=== PATIENT | female | born 1940 | race Caucasian/White ===

== ENCOUNTER 2017-03-07 12:57 | Outpatient (CLI) | payer OTHER ==
--- NOTE | 2017-03-07 14:37 | CT Report ---
CT ABDOMEN AND PELVIS WITHOUT CONTRAST: 03/07/2017 CLINICAL INDICATION: Flank pain. TECHNIQUE: Axial CT images of the abdomen and pelvis were obtained without oral or intravenous contr ast, according to renal stone protocol. No previous CT is available for comparison. In accordance with CT protocol optimization, one or more of the following dose reduction techniques w ere utilized for this exam: automated exposure control, adjustment of mA and/or KV based on patient size, or use of iterative reconstructive technique. FINDINGS: Limited evaluation of the lung bases is unremarkable. Abdomen: There is a left renal cyst present. No hydronephrosis or nephrolithiasis is present. Allo wing for the lack of intravenous contrast enhancement, the liver, spleen, pancreas, and adrenal gland s are unremarkable. The patient is status post cholecystectomy. No bowel dilatation, free gas, or f ree fluid is present. No abdominal adenopathy is seen. Pelvis: The distal ureters and urinary bladder appear unremarkable. Sigmoid diverticulosis is prese nt, without CT evidence of diverticulitis. There is a 3-cm left adnexal cyst, likely ovarian in orig in. Consider pelvic ultrasound for further evaluation. No pelvic adenopathy or free fluid is presen t. Osseous structures demonstrate degenerative changes. IMPRESSION: 1. NO EVIDENCE OF LEFT NEPHROLITHIASIS OR HYDRONEPHROSIS. 2. LEFT ADNEXAL CYST, MEASURING 3 CM. CONSIDER PELVIC ULTRASOUND FOR FURTHER EVALUATION. 3. DIVERTICULOSIS, WITHOUT CT EVIDENCE OF DIVERTICULITIS. JOB #: [id number] EXT JOB #:[id number]
== END 2017-03-07 12:58 | disposition home or self-care (01) ==
LOC: DI 12:57
PROVIDERS: ATTEND Internal Medicine
DX: N94.89 Other specified conditions associated with female genital organs and menstrual cycle (principal); K57.30 Diverticulosis of large intestine without perforation or abscess without bleeding
CPT/HCPCS: 74176

== ENCOUNTER 2017-03-26 07:28 | Outpatient (CLI) | payer OTHER ==
--- NOTE | 2017-03-26 10:43 | Ultrasound Report ---
PELVIC ULTRASOUND: 03/26/2017 CLINICAL INDICATION: Left ovarian cyst on CT. TECHNIQUE: Transabdominal pelvic ultrasound performed for global evaluation. Real-time scanning perfo rmed and static images obtained. The patient declined transvaginal imaging. COMPARISON: CT of 03/07/2017. FINDINGS: The uterus is anteverted, measuring 8.6 x 4.3 x 2.5 cm. The endometrium is thickened for a postmenopausal patient, measuring 8 mm, and trace fluid is noted in the endometrial canal. No focal m yometrial lesion is present. The right ovary was not confidently identified on transabdominal imaging . The left ovary measures 3.6 x 2.9 x 2.7 cm, and contains a 2.8 x 2.4 x 2.2 cm cyst. No free fluid i s seen. IMPRESSION: 1. THICKENED ENDOMETRIUM FOR A POSTMENOPAUSAL PATIENT, WITH A SMALL AMOUNT OF FLUID IN THE ENDOMETRIA L CANAL. CORRELATION WITH POSTMENOPAUSAL BLEEDING AND POSSIBLE ENDOMETRIAL BIOPSY IS RECOMMENDED. 2. A 2.8 CM SIMPLE LEFT OVARIAN CYST, CORRELATING WITH THE CT ABNORMALITY. IF SURGICAL INTERVENTION I S NOT PLANNED, FOLLOWUP ULTRASOUND IN TWO TO THREE MONTHS IS RECOMMENDED TO EVALUATE FOR RESOLUTION. JOB #: [id number] EXT JOB #:[id number]
== END 2017-03-26 07:29 | disposition home or self-care (01) ==
LOC: DI 07:28
PROVIDERS: ATTEND Internal Medicine
DX: N83.292 Other ovarian cyst, left side (principal); R93.8 Abnormal findings on diagnostic imaging of other specified body structures
CPT/HCPCS: 76856

== ENCOUNTER 2017-05-05 15:19 | Outpatient (CLI) | payer MEDICARE ==
[2017-05-07 12:36] LABS: COMPLEMENT COMPONENT C3C 154 mg/dL (90-180); COMPLEMENT COMPONENT C4C 31 mg/dL (16-47)
[2017-05-08 15:10] LABS: TEST RESULT REPORT
== END 2017-05-05 15:20 | disposition home or self-care (01) ==
LOC: LAB 15:19
PROVIDERS: ATTEND Internal Medicine
DX: D84.1 Defects in the complement system (principal); R10.9 Unspecified abdominal pain
CPT/HCPCS: 36415; 81599; 86160; 86161

== ENCOUNTER 2019-04-07 11:15 | Outpatient (CLI) | payer OTHER ==
[2019-04-10 16:21] LABS: 18 KD (IGG) BAND NON-REACTIVE; 23 KD (IGG) BAND NON-REACTIVE; 23 KD (IGM) BLOT NON-REACTIVE; 28 KD (IGG) BAND NON-REACTIVE; 30 KD (IGG) BAND NON-REACTIVE; 39 KD (IGG) BAND NON-REACTIVE; 39 KD (IGM) BLOT NON-REACTIVE; 41 KD (IGG) BAND NON-REACTIVE; 41 KD (IGM) BLOT NON-REACTIVE; 45 KD (IGG) BAND NON-REACTIVE; 58 KD (IGG) BAND NON-REACTIVE; 66 KD (IGG) BAND NON-REACTIVE; 93 KD (IGG) BAND NON-REACTIVE
== END 2019-04-07 11:16 | disposition home or self-care (01) ==
LOC: LAB 11:15
PROVIDERS: ATTEND Internal Medicine
DX: M25.50 Pain in unspecified joint (principal)
CPT/HCPCS: 36415; 81599; 86617; 86753

== ENCOUNTER 2019-06-30 15:21 | Outpatient (CLI) | payer OTHER ==
[2019-06-30 15:55] LABS: BASOPHILS # (AUTO) 0.1 10^3/uL (0.0-0.1); BASOPHILS % (AUTO) 0.6 %; EOSINOPHILS # (AUTO) 0.4 10^3/uL (0.0-0.7); EOSINOPHILS % (AUTO) 4.5 %; HGB - HEMOGLOBIN 14.8 g/dL (12.0-16.0); LYMPHOCYTES # (AUTO) 2.9 10^3/uL (1.5-3.5); LYMPHOCYTES % (AUTO) 35.9 %; MEAN CORPUSCULAR HEMOGLOBIN 29.8 pg (27.0-31.0); MEAN CORPUSCULAR HGB CONC 32.4 g/dL (32.0-36.0); MEAN PLATELET VOLUME 9.9 fL (7.9-10.8); MONOCYTES # (AUTO) 0.7 10^3/uL (0.0-1.0); MONOCYTES % (AUTO) 9.2 %; NEUTROPHILS % (AUTO) 49.4 %; PLT - PLATELET COUNT 216 10^3/uL (130-450); RED BLOOD COUNT 4.97 10^6/uL (4.20-5.40); RED CELL DISTRIBUTION WIDTH 13.2 % (12.0-15.0); WHITE BLOOD COUNT 8.1 x10^3/uL (4.8-10.8)
[2019-06-30 16:03] LABS: ALBUMIN 3.7 g/dL (3.2-5.5); ALBUMIN/GLOBULIN RATIO 1.2 (1.0-2.2); BILIRUBIN,TOTAL 0.5 mg/dL (0.2-1.0); CALCIUM 9.1 mg/dL (8.5-10.3); CREATININE 0.8 mg/dL (0.4-1.0); TOTAL PROTEIN 6.8 g/dL (6.7-8.2)
[2019-06-30 16:13] LABS: HB2 TOTAL 14.9 g/dL; HEMOGLOBIN A1C 0.8 g/dL; HEMOGLOBIN A1C % 7.1 % (4.6-6.2)
== END 2019-06-30 15:22 | disposition home or self-care (01) ==
LOC: LAB 15:21
PROVIDERS: ATTEND Internal Medicine
DX: I50.9 Heart failure, unspecified (principal); R60.9 Edema, unspecified; Z79.899 Other long term (current) drug therapy; R06.01 Orthopnea; E11.9 Type 2 diabetes mellitus without complications; J45.909 Unspecified asthma, uncomplicated
CPT/HCPCS: 36415; 80053; 83036; 83880; 84443; 85025

== ENCOUNTER 2019-06-30 17:20 | Outpatient (CLI) | payer OTHER ==
--- NOTE | 2019-06-30 19:06 | Ultrasound Report ---
Reason: EDEMA Procedure Date: 06/30/2019 Accession Number: [id number] / [id number] Procedure: US - Duplex Ext Veins Left CPT Code: Final Report FULL RESULT: EXAM: LEFT LOWER EXTREMITY VENOUS ULTRASOUND EXAM DATE: 06/30/2019 06:14 PM. CLINICAL HISTORY: EDEMA. COMPARISON: None. TECHNIQUE: Real-time sonographic vascular imaging was performed by the dials inspector through the lower extremity utilizing both color-flow and Doppler spectral analysis. Multiple digital media representative static images were saved for review. FINDINGS: Common Femoral Vein (CFV): Normal. CFV-GSV Junction: Normal. Profunda Femoral Vein (PFV): Normal. Femoral Vein (FV) Prox: Normal. Femoral Vein (FV) Mid: Normal. Femoral Vein (FV) Dist: Normal. Popliteal Vein: Suboptimal visualization. Posterior Tibial Veins: Suboptimal visualization. Peroneal Veins: Suboptimal visualization. Contralateral Side CFV: Normal. Other: A popliteal fossa fluid collection/ bolden's cyst measures 4.7 x 0.5 x 2.6 cm. IMPRESSION: No evidence for deep venous thrombosis in left lower extremity. Suboptimal visualization of calf veins. A popliteal fossa fluid collection/ bolden's cyst measures 4.7 x 0.5 x 2.6 cm. RADIA The call report notification system was initiated by Dr. Shannon Ward at 07:05 PM on 06/30/2019.
== END 2019-06-30 17:21 | disposition home or self-care (01) ==
LOC: DI 17:20
PROVIDERS: ATTEND Internal Medicine
DX: M71.22 Synovial cyst of popliteal space [Baker], left knee (principal); I50.9 Heart failure, unspecified; R60.9 Edema, unspecified; R06.01 Orthopnea; E11.9 Type 2 diabetes mellitus without complications; J45.909 Unspecified asthma, uncomplicated; Z79.899 Other long term (current) drug therapy
CPT/HCPCS: 36415; 80053; 83036; 83880; 84443; 85025

== ENCOUNTER 2020-03-07 11:13 | Outpatient (CLI) | payer OTHER ==
[2020-03-07] MEDS ORDERED: IOVERSOL 320 100 ML VIAL IVP ONE (11:33)
[2020-03-07] MEDS ORDERED: IOVERSOL 320 50 ML VIAL ONE (11:33)
[2020-03-07 11:41] LABS: ALBUMIN 3.4 g/dL (3.2-5.5); BILIRUBIN,TOTAL 0.8 mg/dL (0.2-1.0); CREATININE 0.9 mg/dL (0.4-1.0); TOTAL PROTEIN 6.7 g/dL (6.7-8.2)
--- NOTE | 2020-03-07 15:54 | CT Report ---
PROCEDURE: Abdomen/Pelvis W INDICATIONS: ANOREXIA CONTRAST: IV CONTRAST: Optiray 320 ml: 1000 PO CONTRAST: Optiray 320 ml50 TECHNIQUE: After the administration of contrast, 5 mm thick sections acquired from the diaphragms to the sym physis. 5 mm thick coronal and sagittal reformats were acquired. For radiation dose reduction, the following was used: automated exposure control, adjustment of mA and/or kV according to patient size . COMPARISON: None. FINDINGS: Image quality: Excellent. ABDOMEN: Lung bases: Lung bases are clear. Heart size is normal. Solid organs: Liver and spleen are normal in size and enhancement. Gallbladder has been removed Bi liary system is non dilated. Pancreas enhances normally. No adrenal nodules. Kidneys demonstrate n ormal size and enhancement, without hydronephrosis. Peritoneum and bowel: Bowel loops demonstrate normal wall thickness and caliber. No free fluid or a ir. Colonic diverticulosis without findings of diverticulitis. There is diffuse circumferential thic kening of the stomach wall, particularly near the gastric antrum and pylorus. This is nonspecific. Th ere is also subtle haziness of the fat adjacent to the stomach near the gastroesophageal junction and along the lesser curvature with some prominent but not partial enlarged lymph nodes in this region. Nodes and vessels: No retroperitoneal or mesenteric adenopathy by size criteria. Aorta and inferior vena cava are normal in size. Miscellaneous: No ventral hernias. PELVIS: Genitourinary: Bladder wall thickness is normal. The uterus and ovaries are unremarkable. Miscellaneous: No inguinal hernias or adenopathy. Bones: No suspicious bony lesions. No vertebral body compression fractures. IMPRESSION: Mild circumferential gastric wall thickening which is focally worse near the antrum and pylorus. In c onjunction with subtle fat stranding adjacent to the stomach along the lesser curvature and mildly pr ominent lymph nodes, this raises concern for gastric neoplasm such as adenocarcinoma or potentially a n inflammatory process or ulcer. Endoscopy is recommended for direct visualization and potential tiss ue sampling. Reviewed by: Dorian Whiteside MD on 03/07/2020 3:53 PM PDT Approved by: Dorian Whiteside MD on 03/07/2020 3:53 PM PDT Station ID: [id number]
[2020-03-07] MEDS: IOVERSOL 320 100 ML VIAL IVP ONE (17:15)
[2020-03-07] MEDS: IOVERSOL 320 50 ML VIAL PO ONE (17:16)
== END 2020-03-07 11:14 | disposition home or self-care (01) ==
LOC: DI 11:13
PROVIDERS: ATTEND Surgery
DX: R59.0 Localized enlarged lymph nodes (principal); R93.3 Abnormal findings on diagnostic imaging of other parts of digestive tract; R63.0 Anorexia
CPT/HCPCS: 36415; 74177; 80053; Q9967

== ENCOUNTER 2020-03-10 12:16 | Day surgery (SDC) | payer MEDICARE ==
[2020-03-10] MEDS ORDERED: KETAMINE 500 MG/10 ML VIAL IVP ONE (12:17)
[2020-03-10] MEDS ORDERED: PROPOFOL 200 MG/20 ML VIAL IVP ONE (12:17)
[2020-03-10] MEDS ORDERED: LABETALOL 5 MG/1 ML 20 ML MDV IV ONE (12:17)
[2020-03-10] MEDS ORDERED: LIDOCAINE-MPF 2% 5 ML VIAL IM ONE (12:17)
[2020-03-10] MEDS ORDERED: LACTATED RINGERS 1,000 ML IV ONE ×3 (12:22→14:55)
--- NOTE | 2020-03-10 12:37 | ANESTHESIA ---
Pre-Anesthesia VS, & Labs - Diagnosis Dysphagia, weight loss - Procedure EGD possible NG Vital Signs: Temp Pulse Resp BP Pulse Ox 36 C L 100 16 166/127 H 97 03/10/20 12:28 03/10/20 12:28 03/10/20 12:28 03/10/20 12:28 03/10/20 12:28 Height: 5 ft 3 in Weight (kg): 110.22 kg Body Mass Index: 43.0 BMI Classification: Morbidly Obese - Is Patient ?: No - Lab Results Lab results reviewed: Yes Home Medications and Allergies Home Medications: Ambulatory Orders Cetirizine [ZyrTEC] 10 mg PO DAILY 03/10/20 HYDROcod/ACETAM 5/325 [[place] 5/325] 1 each PO TID 03/10/20 Losartan Potassium 25 mg PO BID 03/10/20 Cetirizine [ZyrTEC] 10 mg PO DAILY 03/10/20 HYDROcod/ACETAM 5/325 [[place] 5/325] 1 each PO TID 03/10/20 Losartan Potassium 25 mg PO BID 03/10/20 Allergies/Adverse Reactions: Allergies Allergy/AdvReac Type Severity Reaction Status Date / Time diphenhydramine AdvReac Itching Verified 03/10/20 12:31 imipramine AdvReac Itching Verified 03/10/20 12:44 lisinopril AdvReac Itching Verified 03/10/20 12:44 oxycodone AdvReac Nausea Verified 03/10/20 12:44 Anes History & Medical History - Anesthetic History Anesthesia Complications: reports: No previous complications Family history of Anesthesia Complications: Denies Family history of Malignant Hyperthermia: Denies - Medical History Cardiovascular: reports: Hypertension, Other (Denies chest pain or cardiac history < 4 mets. Walks slowly around house. Very weak.) Pulmonary: reports: Asthma (Uses inhaler only with bronchitis. Feels is breathing well today) Gastrointestinal: reports: GERD, Chronic diarrhea, Other (IBS) Urinary: reports: Retention, Renal insuffiency Neuro: reports: Other (Spinal stenosis) Musculoskeletal: reports: None (Super Morbid obesity) Endocrine/Autoimmune: reports: Type 2 diabetes (FS 149) Blood Disorders: reports: None Skin: reports: None Smoking Status: Former smoker (80's) Psychosocial: reports: Anxiety, Opioid History of Cancer?: No - Surgical History General: Cholecystectomy Eyes Ears Nose Throat (EENT): Tonsil/Adenoidectomy Plan Anesthesia Type: MAC Consent for Procedure(s) Verified and Reviewed: Yes Code Status: Attempt Resuscitation ASA classification: 3-Severe systemic disease Is this case an emergency?: No
[2020-03-10] MEDS ORDERED: ALBUTEROL NEB 2.5 MG/3 ML INH PRN (12:59)
[2020-03-10] MEDS ORDERED: ATROPINE ABBOJECT 1 MG/10 ML SYRINGE IVP PRN (12:59)
[2020-03-10] MEDS ORDERED: ONDANSETRON 4 MG/2 ML VIAL IVP PRN (12:59)
[2020-03-10] MEDS ORDERED: NALOXONE 0.4 MG/ML VIAL IVP PRN (12:59)
[2020-03-10] MEDS ORDERED: METOCLOPRAMIDE 10 MG/2 ML VIAL IVP PRN (12:59)
[2020-03-10] MEDS ORDERED: fentaNYL 100 MCG/2 ML VIAL IVP PRN (12:59)
[2020-03-10] MEDS ORDERED: ePHEDrine 50 MG/ML VIAL IVP PRN (12:59)
[2020-03-10] MEDS ORDERED: LACTATED RINGERS 1,000 ML IV SCH (13:00)
[2020-03-10] MEDS ORDERED: LIDO GARGLE 30 ML BOTTLE TOP ONE (13:25)
[2020-03-10] MEDS ORDERED: LIDO GARGLE 30 ML BOTTLE ONE (13:27)
[2020-03-10] MEDS ORDERED: SODIUM CHLORIDE FLUSH 0.9% 10 ML SYRINGE IVP PRN (14:25)
[2020-03-10] MEDS ORDERED: PROCHLORPERAZINE 10 MG/2 ML VIAL IVP PRN (14:25)
[2020-03-10] MEDS ORDERED: ONDANSETRON ODT 4 MG TABLET TL PRN (14:25)
[2020-03-10] MEDS ORDERED: hydrALAZINE INJ 20 MG/ML VIAL IVP ONE (14:33)
[2020-03-10] MEDS ORDERED: ALBUTEROL 1 PUFF INH STA (14:34)
[2020-03-10] MEDS ORDERED: hydrALAZINE INJ 20 MG/ML VIAL ONE (14:39)
--- NOTE | 2020-03-10 14:57 | XRAY Report ---
PROCEDURE: Abdomen 1 View X-Ray INDICATIONS: post ng tube placement TECHNIQUE: 1 view of the abdomen were acquired. COMPARISON: None FINDINGS: Surgical changes and devices: Dobbhoff tube is seen with the tip projecting in the stomach. Bowel: No pneumoperitoneum. The bowel gas pattern is normal. Reeves project in the right upper qu adrant. Residual oral contrast material is present. Soft tissues: No masses; visualized solid organ contours appear normal in size. No suspicious abdom inal calcifications. Bones: No suspicious bony abnormalities. IMPRESSION: Enteric tube with the tip projecting in the stomach. Reviewed by: Nael Sal MD on 03/10/2020 2:56 PM PDT Approved by: Nael Sal MD on 03/10/2020 2:56 PM PDT Station ID: [id number]
[2020-03-10] MEDS: ONDANSETRON 4 MG/2 ML VIAL IVP PRN (16:38)
[2020-03-10] MEDS: SODIUM CHLORIDE FLUSH 0.9% 10 ML SYRINGE IVP SCH (16:39)
[2020-03-10] MEDS ORDERED: PHENOL THROAT SPRAY 177 ML MM PRN (16:47)
[2020-03-10] MEDS: D5.45NS W/20 MEQ KCL 1,000 ML IV SCH (16:48)
[2020-03-10] MEDS ORDERED: CETIRIZINE 10 MG TABLET PO SCH (21:00)
[2020-03-10] MEDS: LOSARTAN 50 MG TABLET PO SCH (21:32)
[2020-03-10] MEDS: HYDROcod/ACETAM 5/325 MG TABLET PO PRN (22:53)
[2020-03-11] MEDS: ONDANSETRON 4 MG/2 ML VIAL IVP PRN ×2 (00:39→09:27)
[2020-03-11] MEDS: SODIUM CHLORIDE FLUSH 0.9% 10 ML SYRINGE IVP SCH (00:39)
[2020-03-11] MEDS: D5.45NS W/20 MEQ KCL 1,000 ML IV SCH (02:43)
[2020-03-11] MEDS: HYDROcod/ACETAM 5/325 MG TABLET PO PRN (04:06)
[2020-03-11 06:16] LABS: MEAN CORPUSCULAR HGB CONC 33.4 g/dL (32.0-36.0); MEAN CORPUSCULAR VOLUME 92.6 fL (81.0-99.0); MEAN PLATELET VOLUME 11.2 fL (7.9-10.8); RED BLOOD COUNT 4.2 10^6/uL (4.20-5.40); RED CELL DISTRIBUTION WIDTH 13.4 % (12.0-15.0); WHITE BLOOD COUNT 6.8 x10^3/uL (4.8-10.8)
[2020-03-11 06:31] LABS: ALBUMIN 2.9 g/dL (3.2-5.5); ALBUMIN/GLOBULIN RATIO 1.2 (1.0-2.2); BILIRUBIN,TOTAL 1.1 mg/dL (0.2-1.0); CALCIUM 8.4 mg/dL (8.5-10.3); CREATININE 0.9 mg/dL (0.4-1.0); MAGNESIUM 1.8 mg/dL (1.7-2.8); PHOSPHORUS 3.1 mg/dL (2.5-4.6); TOTAL PROTEIN 5.3 g/dL (6.7-8.2)
[2020-03-11] MEDS ORDERED: PANTOPRAZOLE 40 MG TABLET PO SCH (07:00)
[2020-03-11] MEDS ORDERED: MORPHINE 2 MG/ML CARPUJECT IVP PRN (07:26)
[2020-03-11] MEDS ORDERED: PANTOPRAZOLE 40 MG VIAL IVP SCH (08:00)
[2020-03-11] MEDS ORDERED: FLUTICASONE NASAL SPRAY NAS SCH (09:00)
[2020-03-11] MEDS ORDERED: LOSARTAN 50 MG TABLET PO SCH (09:00)
[2020-03-11 09:03] VITALS: BP 148/69
[2020-03-11] MEDS: LOSARTAN 50 MG TABLET PO SCH (09:28)
--- NOTE | 2020-03-11 09:28 | Discharge Plan ---
Discharge Plan Problem Reviewed?: Yes Disposition: Home, Self Care Condition: Fair Diet: Soft Activity Restrictions: No Restrictions Shower Restrictions: No Driving Restrictions: Yes (no driving) No Smoking: If you smoke, Please STOP! Call for help. Follow-up with: Isabel Lara MD [Primary Care Provider] - Olman Hancock MD [Provider Admit Priv/Credential] -
== END 2020-03-11 11:31 | disposition home or self-care (01) ==
LOC: SDS 12:16 → MS2 14:25 → SDS 03-11 11:31
PROVIDERS: ATTEND Surgery
PROC: 0DB68ZX Excision of Stomach, Via Natural or Artificial Opening Endoscopic, Diagnostic (ICD-10-PCS; principal; 2020-03-10 13:45)
DX: C16.2 Malignant neoplasm of body of stomach (principal); E11.9 Type 2 diabetes mellitus without complications; K21.9 Gastro-esophageal reflux disease without esophagitis; K58.9 Irritable bowel syndrome, unspecified; J45.909 Unspecified asthma, uncomplicated; I10 Essential (primary) hypertension; I49.9 Cardiac arrhythmia, unspecified; F41.9 Anxiety disorder, unspecified; E66.01 Morbid (severe) obesity due to excess calories; Z68.41 Body mass index [BMI] 40.0-44.9, adult; Z79.891 Long term (current) use of opiate analgesic; Z79.51 Long term (current) use of inhaled steroids; Z87.891 Personal history of nicotine dependence
CPT/HCPCS: 36415; 43239; 74018; 80053; 83735; 84100; 84134; 85027; 87081; A9270; J7120; 80048